=== PATIENT | female | born 1955 | race Caucasian/White ===

== ENCOUNTER 2024-05-20 08:16 | Day surgery (SDC) | payer MEDICARE ==
[2024-05-20] MEDS ORDERED: LIDOCAINE HCL 2% 100 MG/5 ML IJ ONE (08:17)
[2024-05-20] MEDS ORDERED: propofoL IV ONE (10:20)
--- NOTE | 2024-05-20 12:30 | XRAY ---
Indication: Bilateral L4-S1 MBB. Intraoperative fluoroscopy provided for 15 seconds. Single digital spot images submitted for interpretation demonstrates posterior needle tips projecting over expected left and right L4-S1 nerve roots. Correlate with intraoperative findings/report.
--- NOTE | 2024-05-20 12:55 | XRAY ---
15 seconds of fluoroscopy was used in surgery for a bilateral L4-S1 MBB.
== END 2024-05-20 10:57 | disposition home or self-care (01) ==
LOC: SDC-PAIN 08:16
PROVIDERS: ATTEND Psychiatry & Neurology Pain Medicine
DX: M47.816 Spondylosis without myelopathy or radiculopathy, lumbar region (principal); E11.9 Type 2 diabetes mellitus without complications
CPT/HCPCS: 64493; 64494; 72020; 77002; 82947; J2704